=== PATIENT | male | born 1970 | race African-American/Black ===

== ENCOUNTER 2016-12-01 03:13 | Emergency (ER) | payer OTHER ==
[~2016-12-01] VITALS: Ht 188 cm; Wt 146.5 kg
[~2016-12-01 03:13] MED LIST: ARIP15TA2 PO; CLON2TAB PO; QUET300T2 PO
--- NOTE | 2016-12-01 03:30 | NUR ---
46 yo male bb ra from [facility]. pt is alert x 3, states he needs medical clearnace for psych admission. pt denies any medical complaints. awaiting orders from provider, will conitnue to monitor
--- NOTE | 2016-12-01 03:45 | NUR ---
urine sample obtained and sent to lab
[2016-12-01 04:23] LABS: BASOPHILS # (AUTO) 0.1 /CMM (0.0-0.2); EOSINOPHILS # (AUTO) 0.3 /CMM (0.0-0.7); EOSINOPHILS % (AUTO) 4.9 % (0.0-6.0); HEMATOCRIT 39 % (39-51); LYMPHOCYTES # (AUTO) 2.6 /CMM (0.8-4.8); LYMPHOCYTES % (AUTO) 37.6 % (20.0-44.0); MEAN CORPUSCULAR HEMOGLOBIN 31 PG (26.0-33.0); MEAN CORPUSCULAR HGB CONC 34 g/dl (31.0-36.0); MEAN CORPUSCULAR VOLUME 93 fL (80-96); MONOCYTES # (AUTO) 0.4 /CMM (0.1-1.30); MONOCYTES % (AUTO) 5.1 % (2.0-12.0); NEUTROPHILS # (AUTO) 3.6 /CMM (1.8-8.9); NEUTROPHILS % (AUTO) 51.4 % (43.0-81.0); PLATELET COUNT (AUTO) 217 /CMM (150-450); RDW COEFFICIENT OF VARIATION 15.1 (11.5-15.0); RED BLOOD CELL COUNT(AUTO) 4.15 MIL/uL (4.5-6.0); WHITE BLOOD COUNT (AUTO) 6.9 K/uL (4.3-11.0)
[2016-12-01 05:09] LABS: ALBUMIN 3.4 g/dL (3.4-5.0); BILIRUBIN,TOTAL 0.2 mg/dL (0.2-1.0); CREATININE 0.8 mg/dL (0.6-1.3); POTASSIUM 3.5 mmol/L (3.5-5.1); TOTAL PROTEIN, SERUM 6.8 g/dL (6.4-8.2)
[2016-12-01 05:10] LABS: SALICYLATE 1.3 mg/dL (2.8-20.0)
--- NOTE | 2016-12-01 06:20 | NUR ---
pt resting in er bed, nad noted, skin warm and dry. will conitnue to monitor
--- NOTE | 2016-12-01 08:00 | NUR ---
ASSUMED CARE OF PT. NAD NOTED. RESTING QUIETLY, EASILY AROUSABLE.
--- NOTE | 2016-12-01 10:10 | NUR ---
[facility]CHARG[facility] TO [facility] VERBALIZES UNDERSTANDING. ALL PAPERWORK WITH PT.
[2016-12-01 10:56] VITALS: BP 142/66
== END 2016-12-01 10:57 ==
LOC: ER 03:16
DX: R44.0 Auditory hallucinations (principal); F29 Unspecified psychosis not due to a substance or known physiological condition; F15.10 Other stimulant abuse, uncomplicated; F17.200 Nicotine dependence, unspecified, uncomplicated; F32.9 Major depressive disorder, single episode, unspecified; F20.9 Schizophrenia, unspecified; Z98.890 Other specified postprocedural states
CPT/HCPCS: 36415; 80048; 80076; 80305; 80329; 85025; 99284; 99406; A4606; G0480 ×3; Z7610

== ENCOUNTER 2017-09-29 13:58 | Emergency (ER) | payer OTHER ==
[~2017-09-29] VITALS: Ht 177.8 cm; Wt 68.0 kg
[~2017-09-29 13:58] MED LIST changes: -ARIP15TA2 PO; +ARIP15TA3 PO
[2017-09-29 14:11] VITALS: BP 178/97
[2017-09-29] MEDS ORDERED: AMLODIPINE BESYLATE 5 MG TABLET ONE (14:15)
[2017-09-29] MEDS ORDERED: CLONIDINE HCL 0.1 MG TABLET ONE (14:15)
[2017-09-29] MEDS ORDERED: AMLODIPINE BESYLATE 5 MG TABLET PO ONE (14:30)
[2017-09-29] MEDS ORDERED: CLONIDINE HCL 0.1 MG TABLET PO ONE (14:30)
== END 2017-09-29 14:22 | disposition home or self-care (01) ==
LOC: ER 14:01
DX: Z04.6 Encounter for general psychiatric examination, requested by authority (principal); I10 Essential (primary) hypertension; F20.9 Schizophrenia, unspecified; F32.9 Major depressive disorder, single episode, unspecified; F17.200 Nicotine dependence, unspecified, uncomplicated; Z98.890 Other specified postprocedural states
CPT/HCPCS: A4606; Z7610

== ENCOUNTER 2018-03-02 02:23 | Emergency (ER) | payer OTHER ==
[2018-03-02] VITALS (7 sets, daily range): BP systolic 119–161; BP diastolic 69–103
[~2018-03-02] VITALS: Ht 182.9 cm; Wt 136.1 kg
--- NOTE | 2018-03-02 02:25 | NUR ---
MD AT BEDSIDE FOR EVALUATION
--- NOTE | 2018-03-02 02:25 | NUR ---
PT [id number] FROM [facility] FOR SOB AND INABILITY TO CARE FOR PT D/T OVER SECRETION OF MUCOUS. PT HAS TRACH COLLAR IN PLACE. SPO2 ON ARRIVAL 99%. PT IS AWAKE. SKIN DRY WARM AND INTACT. VITAL SIGNS STABLE. PT PLACED ON CONTINUOUS SLIP DUMPER
--- NOTE | 2018-03-02 02:30 | NUR ---
RT AT BEDSIDE. VENT SETTINGS : AC, FIO2 30%, V 650, RATE 12. PT'S O2 SAT 97%
--- NOTE | 2018-03-02 02:30 | NUR ---
PT REC'D TRACHED ON [facility] VENT SETTINGS CHARTED. NO RESP DISTRESS OR SOB NOTED. SX'D THICK MOD AMT OF PALE YELLOW SECRETIONS. TRACH PATENT AND SECURED. ALARMS ARE SET AND AUDIBLE. VENT PLUGGED INTO RED OUTLET. AMBU BAG BEDSIDE. WILL CONTINUE TO MONITOR Addendum: 03/02/18 at 0322 by MOISÉS FELDER RT Amended: Links added.
--- NOTE | 2018-03-02 02:40 | NUR ---
IV INITIATED RIGHT FOREARM. LABS DRAWN FROM SITE. LAB AT BEDSIDE FOR ONLINE ACTIVIST. IV INTACT AND PATENT. PLACED ON SALINE LOCK
[2018-03-02 02:52] LABS: BASOPHILS # (AUTO) 0.2 /CMM (0.0-0.2); BASOPHILS % (AUTO) 1.2 % (0.0-2.0); EOSINOPHILS % (AUTO) 2.6 % (0.0-6.0); HEMATOCRIT 35 % (39-51); HEMOGLOBIN 11.1 g/dL (13.5-17.5); LYMPHOCYTES # (AUTO) 1.7 /CMM (0.8-4.8); LYMPHOCYTES % (AUTO) 12.9 % (20.0-44.0); MEAN CORPUSCULAR HGB CONC 32 g/dl (31.0-36.0); MEAN CORPUSCULAR VOLUME 88 fL (80-96); MONOCYTES # (AUTO) 0.9 /CMM (0.1-1.30); MONOCYTES % (AUTO) 6.6 % (2.0-12.0); NEUTROPHILS # (AUTO) 10.3 /CMM (1.8-8.9); NEUTROPHILS % (AUTO) 76.7 % (43.0-81.0); PLATELET COUNT (AUTO) 419 /CMM (150-450); RDW COEFFICIENT OF VARIATION 15.2 (11.5-15.0); RED BLOOD CELL COUNT(AUTO) 3.97 MIL/uL (4.5-6.0); WHITE BLOOD COUNT (AUTO) 13.5 K/uL (4.3-11.0)
--- NOTE | 2018-03-02 03:00 | NUR ---
RADIOLOGY AT BEDSIDE FOR CXR
[2018-03-02 03:06] LABS: CALCIUM, SERUM 9.7 mg/dL (8.5-10.1); CARBON DIOXIDE 25 mmol/L (21-32); CHLORIDE 100 mmol/L (98-107); GLUCOSE 108 mg/dL (74-106); POTASSIUM 4.3 mmol/L (3.5-5.1); SODIUM SERUM 140 mmol/L (136-145); UREA NITROGEN, BLOOD 16 mg/dL (7-18)
[2018-03-02] MEDS ORDERED: ACETAMINOPHEN 650 MG/SUPP.RECT RC ONE ×2 (03:06→03:30)
[2018-03-02 03:09] LABS: INR 1.04 (0.87-1.13)
[2018-03-02 03:16] LABS: TROPONIN I < 0.017 ng/mL (0.00-0.056)
--- NOTE | 2018-03-02 03:20 | NUR ---
URINE COLLECTED CALLED LAB FOR CONSTRUCTION SUPERINTENDENT
[2018-03-02 03:22] LABS: ALANINE AMINOTRANSFERASE 337 U/L (12-78); ALBUMIN 3.1 g/dL (3.4-5.0); ALKALINE PHOSPHATASE 482 U/L (46-116); ASPARTATE AMINOTRANSFERASE 86 U/L (15-37); B-TYPE NATRIURETIC PEPTIDE 264 PG/ML (0-125); BILIRUBIN,DIRECT 0.8 mg/dL (0.0-0.2); BILIRUBIN,TOTAL 1.1 mg/dL (0.2-1.0); TOTAL PROTEIN, SERUM 8.7 g/dL (6.4-8.2)
[2018-03-02 03:56] LABS: APPEARANCE,URINE CLEAR (CLEAR); BILIRUBIN,URINE 1+ (NEGATIVE); BLOOD, URINE NEGATIVE Ery/uL (NEGATIVE); COLOR,URINE DARK YELLO (YELLOW); KETONES,URINE TRACE (NEGATIVE); LEUKOCYTE ESTERASE ,URINE NEGATIVE (NEGATIVE); NITRITE, URINE NEGATIVE (NEGATIVE); PROTEIN,URINE TRACE mg/dl (NEGATIVE); UGLUCOSE NEGATIVE (NEGATIVE); UROBILINOGEN,URINE >=8.0 EU/dL (0.2)
[2018-03-02] MEDS ORDERED: APIX5TAB GT (04:02)
[2018-03-02] MEDS ORDERED: METO-356 GT (04:02)
[2018-03-02] MEDS ORDERED: FOLI1TAB16 GT (04:02)
[2018-03-02] MEDS ORDERED: PANT40SU GT (04:02)
[2018-03-02] MEDS ORDERED: DEXT50VI3 IV (04:02)
[2018-03-02] MEDS ORDERED: LACT-96 GT (04:02)
[2018-03-02] MEDS ORDERED: CLON0.1T GT (04:02)
[2018-03-02] MEDS ORDERED: THIA100T74 GT (04:02)
[2018-03-02] MEDS ORDERED: GLUC1KIT IM (04:02)
[2018-03-02] MEDS ORDERED: QUET25TA GT (04:02)
[2018-03-02] MEDS ORDERED: BACI3.5O5 TP (04:02)
[2018-03-02] MEDS ORDERED: *INS NOVA SQ (04:02)
[2018-03-02] MEDS ORDERED: BISA10SU8 RC (04:02)
[2018-03-02] MEDS ORDERED: HYDR-548 PO (04:02)
[2018-03-02] MEDS ORDERED: CARV6.25 GT (04:02)
[2018-03-02] MEDS ORDERED: COLI1POW MC (04:02)
[2018-03-02] MEDS ORDERED: MULT-1119 GT (04:02)
--- NOTE | 2018-03-02 04:50 | NUR ---
CALLED [facility] AND SPOKE TO NURSE HENNING ABOUT THE PT'S RETURN TO THE FACILITY. SHE RESPONDED "WE CANNOT ACCEPT THE PT UNLESS THE DON APPROVES; PT CAN COME LATER IN THE MORNING AFTER WE HEAR FROM THE DON, OTHER THAN THAT WE WILL NOT ACCEPT THE PT".
--- NOTE | 2018-03-02 05:10 | NUR ---
SPOKE TO [facility] NETWORKING ADMINISTRATOR ILANA AT [phone] ABOUT THE DISPOSITION ORDERED BY THE ER DOCTOR AND HOW NURSE MILADY STATED "WE CANNOT ACCEPT THE PT UNTIL APPROVED BY DON". STATED "AM GONNA CALL AND ASK FOR THE DON NUMBER AND WILL CALL YOU BACK AND ALSO THE TRANSPORT TEAM WILL CALL YOU".
[2018-03-02 05:59] LABS: BACTERIA,URINE Few /HPF (None Seen); MUCUS,URINE Few /LPF (None Seen); SQUAMOUS EPITHELIAL CELL,UR Rare /HPF (None Seen)
--- NOTE | 2018-03-02 07:15 | NUR ---
ASSUME PT CARE. RESTING IN BED. AWAKE. ON VENT W/ CURRENT SETTING, AC RATE 12 TV 650 FIO2 30% PEEP 5. STABLE VITALS. WILL CONT TO MONITOR.
--- NOTE | 2018-03-02 08:15 | NUR ---
RT PT RECEIVED WITH A [employer] 8 TRACH ON THE VENT WITH NOTED SETTINGS. PT IS AWAKE AND RESPONDS TO STIMULI WHEN SX'D. VENT ALARMS ARE SET AND AUDIBLE WITH BVM BY BEDSIDE. POTTERY DECORATOR CUFF PRESSURE NOTED. VENT IS PLUGGED INTO RED OUTLET. SX'D MODERATE THICK PALE YELLOW SECRETIONS. NO RESPIRATORY DISTRESS NOTED AT THIS TIME, WILL CONTINUE TO MONITOR. Addendum: 03/02/18 at 0925 by ISHMAEL MERLOS RT Amended: Links added.
--- NOTE | 2018-03-02 08:17 | NUR ---
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
--- NOTE | 2018-03-02 09:36 | NUR ---
LIZA CALLED FROM [facility] [phone] PT CAN GO BACK PER LIZA TO [facility] WILL ARRANGE TRANSPORT CALL PENG FOR REPORT AT [phone] [place] [phone] AD[address]ESS IS [facility] [address] [facility] [id number]
--- NOTE | 2018-03-02 09:53 | NUR ---
REPORT GIVEN TO CHARGE NURSE BIBI. PT AWAITING TRANPORT AMBULANCE.
--- NOTE | 2018-03-02 10:06 | NUR ---
[facility] CALLED TRANSPORT WILL BE HERE AT 1100 AMBUL[facility]
--- NOTE | 2018-03-02 12:14 | NUR ---
Patient discharged to home in stable condition. Written and verbal after care instructions given. Patient verbalizes understanding of instruction.
--- NOTE | 2018-03-02 12:15 | NUR ---
PT D/C BACK TO [facility]. STABEL CONDITION.
== END 2018-03-02 12:18 ==
LOC: ER 02:25
DX: Z13.89 Encounter for screening for other disorder (principal); F32.9 Major depressive disorder, single episode, unspecified; F20.9 Schizophrenia, unspecified; F17.200 Nicotine dependence, unspecified, uncomplicated; Z98.890 Other specified postprocedural states; Z60.2 Problems related to living alone
CPT/HCPCS: 31720; 36415; 71045; 80048; 80076; 81001; 83605; 83880; 84484; 85025; 85730; 87040 ×2; 93005; 99285; A4606; A6402; Z7610; 81000-TC

== ENCOUNTER 2018-03-09 14:40 | Emergency (ER) | payer OTHER ==
[~2018-03-09] VITALS: Ht 182.9 cm; Wt 132.4 kg
[~2018-03-09 14:40] MED LIST changes: +*INS NOVA SQ; +APIX5TAB GT; +BACI3.5O5 TP; +BISA10SU8 RC; +CARV6.25 GT; +CLON0.1T GT; +COLI1POW MC; +DEXT50VI3 IV; +FOLI1TAB16 GT; +GLUC1KIT IM; +HYDR-4354 PO; +LACT-96 GT; +METO-356 GT; +MULT-1119 GT; +PANT40SU GT; +QUET25TA GT; +THIA100T74 GT
--- NOTE | 2018-03-09 14:45 | NUR ---
[facility]IB [facility] FOR G-TUBE REPLACEMENT. PT CAME IN WITH TRACH AEROSOL. RR IS EVEN AND UNLABORED WITH NAD NOTED. AWAITING MD FOR EVAL.
--- NOTE | 2018-03-09 15:17 | NUR ---
DR CISSE INSERTED THE G-TUBE 18F. PATIENT TOLERATED THE PROCEDURE.
[2018-03-09] MEDS ORDERED: DIATR MEGLU/DIATRIZOATE SODIUM 30 ML BOTTLE (GASTROGRAPHIN) ONE (15:19)
--- NOTE | 2018-03-09 15:21 | NUR ---
CALLED [facility] TO ARRANGE A BLS TRANSPORT BACK TO THEIR SNF. WAS GIVEN AN ETA OF 1085 TRIP #: [id number]
--- NOTE | 2018-03-09 15:28 | NUR ---
XRAY AT BS
[2018-03-09] MEDS ORDERED: DIATR MEGLU/DIATRIZOATE SODIUM 30 ML BOTTLE (GASTROGRAPHIN) PO ONE (15:30)
--- NOTE | 2018-03-09 18:57 | NUR ---
Patient discharged to [facility] in stable condition. Written and verbal after care instructions given. Patient AND EMS verbalized understanding of instruction.
[2018-03-09 18:58] VITALS: BP 132/61
== END 2018-03-09 19:06 | disposition home or self-care (01) ==
LOC: ER 14:44
DX: Z43.1 Encounter for attention to gastrostomy (principal); I48.91 Unspecified atrial fibrillation; I25.10 Atherosclerotic heart disease of native coronary artery without angina pectoris; F15.10 Other stimulant abuse, uncomplicated; K21.9 Gastro-esophageal reflux disease without esophagitis; E11.9 Type 2 diabetes mellitus without complications; F20.9 Schizophrenia, unspecified; F32.9 Major depressive disorder, single episode, unspecified; F10.10 Alcohol abuse, uncomplicated; F17.200 Nicotine dependence, unspecified, uncomplicated; R56.9 Unspecified convulsions; Y90.9 Presence of alcohol in blood, level not specified; Z79.4 Long term (current) use of insulin; Z86.19 Personal history of other infectious and parasitic diseases; Z86.73 Personal history of transient ischemic attack (TIA), and cerebral infarction without residual deficits; Z96.661 Presence of right artificial ankle joint; Z96.622 Presence of left artificial elbow joint
CPT/HCPCS: 43760; 74018; 99284; A4606; Q9963 ×2; Z7610

== ENCOUNTER 2018-03-13 20:04 | Emergency (ER) | payer OTHER ==
[~2018-03-13] VITALS: Ht 172.7 cm; Wt 128.8 kg
--- NOTE | 2018-03-13 20:00 | NUR ---
RT CALLED TO ER FOR PT WITH TRACH REMOVED. FOUND PT WITH HUMBERTO 8 MOSTLY EXPOSED, EDGE OF CUFF VISIBLE, THE REMAIN IN THE STOMA. CUFF BROKEN. A NEW SHIELY 8 CUFFED OBTAINED AND INSERTED BY VIA KARINA PLACED THROUGH TRACH AND OLD TRACH REMOVED OVER A GUIDE. NEW TRACH PLACED OVER AND PLACED IN POSITION WITH HELP OF A GUIDE. PT PLACED ON TRACH COLLER 6L. SPO 100% HR 90 RR 18. MODERATE TO LARGE AMOUNT OF THICK BLOODY SECRETIONS. TRACH SECURED VIA TRACH TIE, AIRWAY PATENT CONFIRMED VIA BREATH SOUNDS. Addendum: 03/13/18 at 2236 by LESLIE MARROQUIN RT Amended: Links added.
[2018-03-13] MEDS ORDERED: FENTANYL PF 100MCG/2ML AMPUL IV ONE (20:30)
[2018-03-13] MEDS ORDERED: IV NS 0.9% 500 ML BAG IV ONE (20:30)
[2018-03-13 20:44] LABS: BASOPHILS # (AUTO) 0.1 /CMM (0.0-0.2); BASOPHILS % (AUTO) 1.5 % (0.0-2.0); EOSINOPHILS % (AUTO) 3.8 % (0.0-6.0); HEMATOCRIT 39 % (39-51); HEMOGLOBIN 12.7 g/dL (13.5-17.5); LYMPHOCYTES # (AUTO) 1.5 /CMM (0.8-4.8); LYMPHOCYTES % (AUTO) 16.8 % (20.0-44.0); MEAN CORPUSCULAR HGB CONC 33 g/dl (31.0-36.0); MEAN CORPUSCULAR VOLUME 86 fL (80-96); MONOCYTES # (AUTO) 0.7 /CMM (0.1-1.30); MONOCYTES % (AUTO) 7.1 % (2.0-12.0); NEUTROPHILS # (AUTO) 6.6 /CMM (1.8-8.9); NEUTROPHILS % (AUTO) 70.8 % (43.0-81.0); PLATELET COUNT (AUTO) 332 /CMM (150-450); RED BLOOD CELL COUNT(AUTO) 4.56 MIL/uL (4.5-6.0); WHITE BLOOD COUNT (AUTO) 9.2 K/uL (4.3-11.0)
[2018-03-13 20:53] LABS: CALCIUM, SERUM 9.7 mg/dL (8.5-10.1); CREATININE 0.8 mg/dL (0.6-1.3); POTASSIUM 3.8 mmol/L (3.5-5.1)
--- NOTE | 2018-03-13 21:30 | NUR ---
ATTEMPTED TO INSERT IV, PT REFUSED BY WORDING "NO" AND SHAKING HEAD LEFT TO RIGHT. RISK AND BENEFITS EXPLAINED X 3. PT CONTINUES TO REFUSED.
--- NOTE | 2018-03-13 21:53 | NUR ---
SPOKE TO KWADWO TITUS [facility] AWARE PT CLEARED TO TRANSFER BACK TO FACILITY.
--- NOTE | 2018-03-13 23:50 | NUR ---
[facility] FOR TRANSPORT BACK TO [facility] IN [place] ETA 1.5-2 HRS. TRIP [id number]
--- NOTE | 2018-03-14 01:21 | NUR ---
REPORT GIVEN TO [facility] EMT FOR [facility]. PT VSS. PT TRANSFERRED VIA GURNEY TO [facility]. PER [facility] TOOK OVER CARE.
[2018-03-14 04:15] VITALS: BP 145/89
== END 2018-03-14 01:21 ==
LOC: ER 20:05
DX: J95.03 Malfunction of tracheostomy stoma (principal); D64.9 Anemia, unspecified; E87.4 Mixed disorder of acid-base balance; I48.91 Unspecified atrial fibrillation; I25.10 Atherosclerotic heart disease of native coronary artery without angina pectoris; J96.90 Respiratory failure, unspecified, unspecified whether with hypoxia or hypercapnia; F20.9 Schizophrenia, unspecified; F10.10 Alcohol abuse, uncomplicated; F17.200 Nicotine dependence, unspecified, uncomplicated; F32.9 Major depressive disorder, single episode, unspecified; E11.9 Type 2 diabetes mellitus without complications; K21.9 Gastro-esophageal reflux disease without esophagitis; F15.10 Other stimulant abuse, uncomplicated; R56.9 Unspecified convulsions; Y90.9 Presence of alcohol in blood, level not specified; Z86.19 Personal history of other infectious and parasitic diseases; Z96.651 Presence of right artificial knee joint; Z96.622 Presence of left artificial elbow joint; Z79.4 Long term (current) use of insulin; Z86.73 Personal history of transient ischemic attack (TIA), and cerebral infarction without residual deficits
CPT/HCPCS: 36415; 71045-TC; 80048-TC; 85025-TC; A4606; A6402; Z7610